=== PATIENT | male | born 1980 | race Caucasian/White ===

== ENCOUNTER 2022-09-15 23:58 | Emergency (ER) | payer SELFPAY ==
[~2022-09-15] VITALS: Ht 175.3 cm; Wt 72.6 kg
[2022-09-16 00:03] VITALS: BP 132/85
--- NOTE | 2022-09-16 00:06 | NUR ---
to lobby a/w bed ambulatory
--- NOTE | 2022-09-16 01:26 | NUR ---
INFORMED BY DR. BUCHANAN THAT PT WAS CALLED IN LOBBY AND OUTSIDE WITH NO ANSWER.
--- NOTE | 2022-09-16 01:35 | NUR ---
PT CALLED AGAIN WITH NO ANSWER. PT LWBS
== END 2022-09-16 01:35 | disposition left against medical advice (07) ==
LOC: MED 23:58
DX: R10.9 Unspecified abdominal pain (principal); Z53.21 Procedure and treatment not carried out due to patient leaving prior to being seen by health care provider

== ENCOUNTER 2022-10-03 01:24 | Emergency (ER) | payer OTHER ==
[~2022-10-03] VITALS: Ht 170.2 cm; Wt 68.9 kg
[2022-10-03 01:33] VITALS: BP 142/86
[2022-10-03 01:35] VITALS: BP 142/86
--- NOTE | 2022-10-03 01:37 | NUR ---
PT TO WAIT IN LOBBY
== END 2022-10-03 04:31 | disposition left against medical advice (07) ==
LOC: MED 01:24
DX: R33.9 Retention of urine, unspecified (principal); Z53.21 Procedure and treatment not carried out due to patient leaving prior to being seen by health care provider